=== PATIENT | male | born 1990 | race Caucasian/White ===

== ENCOUNTER 2023-04-13 20:17 | Inpatient (IN) | payer MEDICAID ==
[~2023-04-13] VITALS: Ht 182.9 cm; Wt 148.8 kg
[2023-04-14] MEDS ORDERED: vancomycin/NS 1 GM ADD-VANTAGE 250 ML IV ONE ×2 (00:15→02:00)
[2023-04-14] MEDS ORDERED: piperacillin/tazo 3.375gm/50ml 50 ML IV ONE (00:15)
[2023-04-14 01:40] LABS: BASOPHILS # (AUTO) 0.1 X10'3 (0-0.2); BASOPHILS % (AUTO) 0.6 % (0-1); EOSINOPHILS # (AUTO) 0.3 X10'3 (0-0.9); EOSINOPHILS % (AUTO) 1.6 % (0-6); HEMATOCRIT 34.5 % (42.0-52.0); HEMOGLOBIN 11.3 g/dl (14.0-17.9); LYMPHOCYTES # (AUTO) 1.4 X10'3 (1.1-4.8); LYMPHOCYTES % (AUTO) 8.4 % (21-51); MEAN CORPUSCULAR HEMOGLOBIN 26.6 PG (27.0-31.0); MEAN CORPUSCULAR HGB CONC 32.8 g/dL (33.0-36.5); MEAN CORPUSCULAR VOLUME 81.2 FL (78-98); MONOCYTES % (AUTO) 6.3 % (2-12); NEUTROPHILS # (AUTO) 13.5 X10'3 (1.8-7.7); NEUTROPHILS % (AUTO) 83.1 % (42-75); PLATELET COUNT 488 X10'3 (140-440); RED BLOOD COUNT 4.25 X10'6 (4.70-6.10); RED CELL DISTRIBUTION WIDTH 13.8 % (11.5-14.5); WHITE BLOOD COUNT 16.2 X10'3 (4.5-11.0)
[2023-04-14 01:55] LABS: ALANINE AMINOTRANSFERASE 21 U/L (12-78); ALBUMIN 2.9 G/DL (3.4-5.0); ALBUMIN/GLOBULIN RATIO 0.6 (1.1-1.5); ALKALINE PHOSPHATASE 87 IU/L (46-116); ANION GAP 4 (8-16); ASPARTATE AMINO TRANSFERASE 12 U/L (10-37); BILIRUBIN,TOTAL 0.2 MG/DL (0.1-1.0); BLOOD UREA NITROGEN 13 MG/DL (7-18); BUN/CREATININE RATIO 14.6 (10.0-20.0); CALCIUM 9.2 MG/DL (8.5-10.1); CHLORIDE 102 MMOL/L (99-107); CREATININE 0.89 MG/DL (0.60-1.10); GLUCOSE 108 MG/DL (70-104); MAGNESIUM 2.1 MG/DL (1.5-2.4); POTASSIUM 4.3 MMOL/L (3.5-5.1); SODIUM 134 MMOL/L (135-145); TOTAL CARBON DIOXIDE 27.8 MMOL/L (24-32); eCRCL 132 ML/MIN; eGFR > 90 ML/MIN
[2023-04-14] MEDS ORDERED: magnesium 2GM in 50ml NS 50 ML IV PRN (02:30)
[2023-04-14] MEDS ORDERED: mag hydrox/Alum hydrox/simeth 30ml oral suspension PO PRN (02:30)
[2023-04-14] MEDS ORDERED: ondansetron/PF 4mg/2ml inj IV PRN (02:30)
[2023-04-14] MEDS ORDERED: magnesium 4gm in 100ml NS 100 ML IV PRN (02:30)
[2023-04-14] MEDS ORDERED: magnesium Cl slow-release 64mg tablet PO PRN (02:30)
[2023-04-14] MEDS ORDERED: acetaminophen 325mg tablet PO PRN (02:30)
[2023-04-14] MEDS ORDERED: magnesium hydroxide 30ml (MOM) UD suspension PO PRN (02:30)
[2023-04-14] MEDS ORDERED: potassium Cl 40MEQ/1/2NS 520ml 520 ML IV PRN (02:30)
[2023-04-14] MEDS ORDERED: morphine 2 MG/ML inj. syringe IV PRN (02:30)
[2023-04-14] MEDS ORDERED: potassium Cl 20 mEq SR tablet PO PRN ×2 (02:30)
[2023-04-14] MEDS ORDERED: hydrALAZINE 20mg/ml inj. IV PRN (05:50)
--- NOTE | 2023-04-14 06:57 | NUR ---
floating checking to see if there is any oral meds or orders to help rn
--- NOTE | 2023-04-14 07:14 | NUR ---
PT SHOWED HR OF 134 WITH SAT MONITOR. RN ORD EKG PER PROTOCOL AND WILL APPLY TELE. MD WILL BE NOTIFIED.
[2023-04-14] MEDS ORDERED: lisinopril 10 MG tablet PO SCH (08:00)
[2023-04-14] MEDS: K and/or MAG REPLACEMENT MC SCH ×2 (08:00→20:00)
[2023-04-14] MEDS ORDERED: vancomycin/NS 1 GM ADD-VANTAGE 250 ML IV SCH ×2 (08:00→11:00)
[2023-04-14] MEDS: docusate sod 100mg capsule PO SCH ×2 (08:00→20:00)
[2023-04-14] MEDS ORDERED: metoprolol succinate 25mg (24-HOUR) SR. Tablet PO SCH (08:00)
--- NOTE | 2023-04-14 08:01 | NUR ---
RN PAGED DR YORK TO NOTIFY HIM OF PT HR AND EKG RESULT.
--- NOTE | 2023-04-14 08:02 | NUR ---
EKG RESULT S-TACHYCARDIA. PT HAS NO C/O CP AND STATES THAT HE HAS A HX OF HIGH HR.
[2023-04-14] MEDS: HYDROcodone/acetaminophen 5mg/325mg tablet PO PRN ×3 (08:46→22:19)
[2023-04-14] MEDS: piperacillin/tazo 4.5gm/100ml 100 ML IV SCH ×3 (08:47→22:19)
[2023-04-14] MEDS: enoxaparin 40mg/0.4ml syringe SUBCUT SCH (08:47)
--- NOTE | 2023-04-14 08:48 | NUR ---
RN WILL ATTEMPT NEW IV D/T VANC AND ZOSYN ARE NOT COMPATIBLE.
[2023-04-14 10:37] LABS: BILIRUBIN,URINE NEGATIVE (Neg); CLARITY,URINE CLEAR (Clear); COLOR,URINE YELLOW (Yellow); GLUCOSE, URINE NEGATIVE (Neg); KETONES,URINE NEGATIVE (Neg); LEUKOCYTE ESTERASE ,URINE NEGATIVE (Neg); NITRITES, URINE NEGATIVE (Neg); OCCULT BLOOD,URINE NEGATIVE (Neg); PH,URINE 5.5 (4.8-8.0); PROTEIN,URINE NEGATIVE (Neg); UROBILINOGEN,URINE 0.2 E.U/dL (0.2-1.0)
[2023-04-14 10:45] LABS: UA COLLECTION TYPE CLN CATCH MIDSTREAM; URINE AMPHETAMINE SCREEN NEGATIVE (Neg); URINE BARBITUATE SCREEN NEGATIVE (Neg); URINE BENZODIAZEPINES SCREEN NEGATIVE (Neg); URINE CANNABINOID SCREEN NEGATIVE (Neg); URINE COCAINE SCREEN NEGATIVE (Neg); URINE METHADONE SCREEN NEGATIVE (Neg); URINE OPIATE SCREEN NEGATIVE (Neg); URINE PHENCYCLIDINE SCREEN NEGATIVE (Neg)
[2023-04-14 10:48] LABS: CHOL/HDL RATIO 3.2 (0.00-4.99); CHOLESTEROL 94 MG/DL (0-200); ETHANOL < 10 MG/DL (<10); HDL CHOLESTEROL 29 MG/DL (35-60); LDL CHOLESTEROL 54 MG/DL (50-100); THYROID STIMULATING HORMONE 1.28 ulU/ml (0.34-4.50); TRIGLYCERIDES 41 MG/DL (20-135)
[2023-04-14 10:56] LABS: HEMOGLOBIN A1C 5.9 % (4.5-6.2)
[2023-04-14] MEDS: vancomycin/NS 1 GM ADD-VANTAGE 250 ML IV SCH ×2 (12:53→20:29)
[2023-04-14] MEDS ORDERED: LISI10TA27 PO (13:42)
[2023-04-14] MEDS ORDERED: METO-411 PO (13:43)
[2023-04-14] MEDS ORDERED: CEPH-585 PO (13:45)
[2023-04-14] MEDS ORDERED: SULF1TAB45 PO (13:46)
[2023-04-14] MEDS ORDERED: IBUP-1985 PO (13:47)
[2023-04-14] MEDS ORDERED: ACET325T55 PO (13:49)
--- NOTE | 2023-04-14 17:23 | NUR ---
RN ATTEMPTED TO CALL REPORT AND SPOKE WITH JATINDER WHO STATED THEY HAVE TO ASSIGN A NURSE AND THEY WILL CALL BACK ONCE THIS IS DONE. THIS RN NOTIFIED WATER ENGINEER DEBBIE.
--- NOTE | 2023-04-14 18:01 | NUR ---
pt just arrived to floor
[2023-04-14 18:08] VITALS: BP 156/77; PULSE 112; RESP 20; TEMP 99.6; O2SAT 96
--- NOTE | 2023-04-14 18:10 | NUR ---
gave report to october,
[2023-04-14] MEDS: lisinopril 10 MG tablet PO SCH (20:28)
[2023-04-14 22:00] VITALS: BP 149/69; PULSE 113; RESP 17; TEMP 98.9; O2SAT 99
[2023-04-15] MEDS ORDERED: VANCOMYCIN LEVEL IV ONE (02:30)
[2023-04-15] MEDS: HYDROcodone/acetaminophen 5mg/325mg tablet PO PRN (04:26)
[2023-04-15] MEDS: vancomycin/NS 1 GM ADD-VANTAGE 250 ML IV SCH (04:27)
[2023-04-15 06:00] VITALS: BP 138/58; PULSE 115; RESP 18; TEMP 98.8; O2SAT 95
[2023-04-15 06:11] LABS: BASOPHILS # (AUTO) 0.1 X10'3 (0-0.2); BASOPHILS % (AUTO) 0.6 % (0-1); EOSINOPHILS # (AUTO) 0.1 X10'3 (0-0.9); EOSINOPHILS % (AUTO) 0.8 % (0-6); HEMATOCRIT 34.1 % (42.0-52.0); HEMOGLOBIN 11.1 g/dl (14.0-17.9); LYMPHOCYTES # (AUTO) 1.8 X10'3 (1.1-4.8); LYMPHOCYTES % (AUTO) 10.9 % (21-51); MEAN CORPUSCULAR HEMOGLOBIN 26.3 PG (27.0-31.0); MEAN CORPUSCULAR HGB CONC 32.5 g/dL (33.0-36.5); MEAN CORPUSCULAR VOLUME 80.9 FL (78-98); MONOCYTES # (AUTO) 1.1 X10'3 (0-0.9); MONOCYTES % (AUTO) 6.8 % (2-12); NEUTROPHILS # (AUTO) 13.2 X10'3 (1.8-7.7); NEUTROPHILS % (AUTO) 80.9 % (42-75); PLATELET COUNT 491 X10'3 (140-440); RED BLOOD COUNT 4.22 X10'6 (4.70-6.10); RED CELL DISTRIBUTION WIDTH 13.6 % (11.5-14.5); WHITE BLOOD COUNT 16.3 X10'3 (4.5-11.0)
[2023-04-15] MEDS: piperacillin/tazo 4.5gm/100ml 100 ML IV SCH ×3 (06:14→21:56)
--- NOTE | 2023-04-15 06:15 | NUR ---
Patient in room ORTHO 4010. I have received report from Linda RN and had the opportunity to ask questions and assume patient care.
[2023-04-15 06:57] LABS: % IRON SATURATION 7 % (11-46); IRON 16 UG/DL (53-167); TOTAL IRON BINDING CAPACITY 214 UG/DL (259-388)
[2023-04-15 07:11] LABS: ALANINE AMINOTRANSFERASE 18 U/L (12-78); ALBUMIN 2.5 G/DL (3.4-5.0); ALBUMIN/GLOBULIN RATIO 0.5 (1.1-1.5); ALKALINE PHOSPHATASE 71 IU/L (46-116); ANION GAP 10 (8-16); ASPARTATE AMINO TRANSFERASE 14 U/L (10-37); BILIRUBIN,TOTAL 0.4 MG/DL (0.1-1.0); BLOOD UREA NITROGEN 12 MG/DL (7-18); BUN/CREATININE RATIO 15.4 (10.0-20.0); CALCIUM 8.9 MG/DL (8.5-10.1); CHLORIDE 100 MMOL/L (99-107); CREATININE 0.78 MG/DL (0.60-1.10); FERRITIN 425 NG/ML (26-388); GLUCOSE 120 MG/DL (70-104); SODIUM 134 MMOL/L (135-145); TOTAL CARBON DIOXIDE 24.3 MMOL/L (24-32); TOTAL PROTEIN 7.3 G/DL (6.4-8.2); eCRCL 151 ML/MIN; eGFR > 90 ML/MIN
[2023-04-15 08:00] VITALS: RESP 18; O2SAT 95
[2023-04-15] MEDS: K and/or MAG REPLACEMENT MC SCH ×2 (08:00→20:00)
[2023-04-15] MEDS: docusate sod 100mg capsule PO SCH ×2 (08:00→20:00)
[2023-04-15] MEDS: enoxaparin 40mg/0.4ml syringe SUBCUT SCH (08:09)
[2023-04-15] MEDS: metoprolol succinate 25mg (24-HOUR) SR. Tablet PO SCH (08:09)
[2023-04-15 10:00] VITALS: BP 146/69; PULSE 112; RESP 18; TEMP 99.3; O2SAT 95
[2023-04-15] MEDS ORDERED: FLU VACC QS2023-24(6MOS UP)/PF 60 MCG/0.5 ML SYRINGE IM ONE (10:00)
[2023-04-15] MEDS: VANCOMYCIN 1,500MG in NS 300ml IVPB IV SCH ×2 (11:02→19:28)
[2023-04-15] MEDS ORDERED: iohexol 300mg/ml 100ml inj. ONE (13:40)
[2023-04-15] MEDS ORDERED: iohexol 350MG/ML 100ml bottle IV ONE (14:11)
[2023-04-15 18:00] VITALS: BP 145/67; PULSE 102; RESP 14; TEMP 99; O2SAT 95
--- NOTE | 2023-04-15 18:00 | NUR ---
I have reviewed and agree with interventions, assessments, and documentation by Taryn Can LVN.
--- NOTE | 2023-04-15 18:07 | NUR ---
Problems reprioritized. Patient report given, questions answered & plan of care reviewed with Linda BONNER.
[2023-04-15] MEDS: lisinopril 10 MG tablet PO SCH (19:28)
[2023-04-15 22:00] VITALS: BP 165/65; PULSE 117; RESP 16; TEMP 97.6; O2SAT 96
[2023-04-16] VITALS (16 sets, daily range): BP systolic 118–147; BP diastolic 71–88; PULSE 88–120; RESP 14–18; TEMP 96.8–99.5; O2SAT 93–98
[2023-04-16] MEDS: VANCOMYCIN 1,500MG in NS 300ml IVPB IV SCH ×3 (03:27→19:06)
[2023-04-16] MEDS: piperacillin/tazo 4.5gm/100ml 100 ML IV SCH ×3 (05:59→22:12)
[2023-04-16 06:21] LABS: BASOPHILS # (AUTO) 0.1 X10'3 (0-0.2); BASOPHILS % (AUTO) 0.4 % (0-1); EOSINOPHILS # (AUTO) 0.1 X10'3 (0-0.9); EOSINOPHILS % (AUTO) 0.8 % (0-6); HEMATOCRIT 35.5 % (42.0-52.0); HEMOGLOBIN 11.6 g/dl (14.0-17.9); LYMPHOCYTES # (AUTO) 1.8 X10'3 (1.1-4.8); LYMPHOCYTES % (AUTO) 11.6 % (21-51); MEAN CORPUSCULAR HEMOGLOBIN 26.5 PG (27.0-31.0); MEAN CORPUSCULAR HGB CONC 32.8 g/dL (33.0-36.5); MEAN CORPUSCULAR VOLUME 80.7 FL (78-98); MONOCYTES # (AUTO) 1.1 X10'3 (0-0.9); MONOCYTES % (AUTO) 7.1 % (2-12); NEUTROPHILS # (AUTO) 12.4 X10'3 (1.8-7.7); NEUTROPHILS % (AUTO) 80.1 % (42-75); PLATELET COUNT 539 X10'3 (140-440); RED CELL DISTRIBUTION WIDTH 13.7 % (11.5-14.5); WHITE BLOOD COUNT 15.5 X10'3 (4.5-11.0)
[2023-04-16 06:40] LABS: ALANINE AMINOTRANSFERASE 24 U/L (12-78); ALBUMIN 2.6 G/DL (3.4-5.0); ALBUMIN/GLOBULIN RATIO 0.5 (1.1-1.5); ALKALINE PHOSPHATASE 70 IU/L (46-116); ANION GAP 6 (8-16); ASPARTATE AMINO TRANSFERASE 12 U/L (10-37); BILIRUBIN,TOTAL 0.5 MG/DL (0.1-1.0); BLOOD UREA NITROGEN 9 MG/DL (7-18); BUN/CREATININE RATIO 11.1 (10.0-20.0); CALCIUM 9.5 MG/DL (8.5-10.1); CHLORIDE 101 MMOL/L (99-107); CREATININE 0.81 MG/DL (0.60-1.10); GLUCOSE 123 MG/DL (70-104); POTASSIUM 4.1 MMOL/L (3.5-5.1); SODIUM 137 MMOL/L (135-145); TOTAL CARBON DIOXIDE 29.8 MMOL/L (24-32); TOTAL PROTEIN 7.6 G/DL (6.4-8.2); eCRCL 145 ML/MIN; eGFR > 90 ML/MIN
--- NOTE | 2023-04-16 06:49 | NUR ---
Patient in room ORTHO 4010. I have received report from CARL RN and had the opportunity to ask questions and assume patient care.
[2023-04-16] MEDS: docusate sod 100mg capsule PO SCH ×2 (08:00→19:53)
[2023-04-16] MEDS: K and/or MAG REPLACEMENT MC SCH ×2 (08:00→21:55)
[2023-04-16] MEDS: metoprolol succinate 25mg (24-HOUR) SR. Tablet PO SCH (08:04)
[2023-04-16] MEDS ORDERED: VANCOMYCIN LEVEL IV ONE (10:30)
--- NOTE | 2023-04-16 11:48 | NUR ---
vanco trough blood draw was hemolyzed. vanco 1500mg already started after blood draw. i notified the pharmacist. pt. vanco trough yesterday 7.8
[2023-04-16] MEDS ORDERED: hydrALAZINE 20mg/ml inj. IV PRN ×2 (14:35→15:30)
[2023-04-16] MEDS ORDERED: morphine 2 MG/ML inj. syringe IV PRN ×2 (14:35→15:30)
[2023-04-16] MEDS ORDERED: ondansetron/PF 4mg/2ml inj IV PRN ×2 (14:35→15:30)
[2023-04-16] MEDS ORDERED: labetalol 20mg/4ml (5mg/ml) syringe IV PRN ×2 (14:35→15:30)
[2023-04-16] MEDS ORDERED: ringers solution, lacted 1,000 ML IV SCH ×2 (14:35→15:30)
[2023-04-16] MEDS ORDERED: morphine 4 MG/ML inj SYRINge IV PRN ×2 (14:35→15:30)
[2023-04-16] MEDS ORDERED: fentaNYL/PF 50MCG/1 ML 2ML syringe IV PRN ×2 (14:35)
[2023-04-16] MEDS ORDERED: proCHLORperazine 10 MG/2 ml inj IV PRN (15:30)
[2023-04-16] MEDS ORDERED: acetaminophen 1,000mg/100ml IV 100 ML IV PRN (15:30)
[2023-04-16] MEDS ORDERED: meperidine/PF 25mg/ml syringe IV PRN ×3 (15:30)
[2023-04-16] MEDS ORDERED: ketorolac trometh. 30mg/ml inj. IV ONE (15:30)
[2023-04-16] MEDS ORDERED: sevoflurane 250ml liquid IH ONE (16:06)
[2023-04-16] MEDS ORDERED: midazolam 1 mg/ML 2ml injection ONE (16:11)
[2023-04-16] MEDS ORDERED: fentaNYL /PF 50mcg/ml 5ml ampule ONE (16:12)
[2023-04-16] MEDS ORDERED: ceFAZolin 1000mg inj ONE ×3 (16:19)
[2023-04-16] MEDS ORDERED: LIDOcaine 2% (20mg/ml) 5ml vial ONE (16:25)
[2023-04-16] MEDS ORDERED: dexamethasone sod phosphate 4mg/ml inj. ONE (16:25)
[2023-04-16] MEDS ORDERED: propofol inj 20 ML IV ONE ×2 (16:26)
[2023-04-16] MEDS ORDERED: ondansetron/PF 4mg/2ml inj ONE (16:26)
--- NOTE | 2023-04-16 17:03 | NUR ---
Received from OR via BED IN STABLE CONDITION , accompanied by Anesthesiologist and PLASTIC INJECTION MOLD MAKER report given by PLASTIC INJECTION MOLD MAKER AND Anesthesiolgist. Addendum: 04/16/23 at 1718 by Catalina Ghotra RN Amended: Links added.
[2023-04-16] MEDS: HYDROcodone/acetaminophen 5mg/325mg tablet PO PRN ×2 (17:35→22:12)
--- NOTE | 2023-04-16 17:53 | NUR ---
PATIENT DISCHARGED FROM PACU IN STABLE CONDITION AFTER REPORT GIVEN TO RN TAKING OVER PATIENTS CARE. PATIENT TRANSFERRED TO ROOM 4010B VIA BED WITH RNX2. Addendum: 04/16/23 at 1756 by Catalina Ghotra RN Amended: Links added.
--- NOTE | 2023-04-16 18:43 | NUR ---
Problems reprioritized. Patient report given TO TRACEY BONNER, questions answered & plan of care reviewed with .
--- NOTE | 2023-04-16 19:18 | NUR ---
Student Medication Administration: For this medication-pass time frame, all medication were reviewed, dispensed, administered and documented per hospital policy by Ryan Arias [facility].
[2023-04-16] MEDS: lisinopril 10 MG tablet PO SCH (22:12)
[2023-04-17 01:14] VITALS: BP 143/73; PULSE 76; RESP 17; TEMP 97.8; O2SAT 96
[2023-04-17] MEDS: VANCOMYCIN 1,500MG in NS 300ml IVPB IV SCH (04:21)
[2023-04-17 04:28] LABS: BASOPHILS % (AUTO) 0.3 % (0-1); EOSINOPHILS % (AUTO) 0.1 % (0-6); HEMATOCRIT 36.1 % (42.0-52.0); HEMOGLOBIN 11.8 g/dl (14.0-17.9); LYMPHOCYTES # (AUTO) 0.8 X10'3 (1.1-4.8); LYMPHOCYTES % (AUTO) 4.7 % (21-51); MEAN CORPUSCULAR HEMOGLOBIN 26.2 PG (27.0-31.0); MEAN CORPUSCULAR HGB CONC 32.8 g/dL (33.0-36.5); MEAN CORPUSCULAR VOLUME 79.8 FL (78-98); MEAN PLATELET VOLUME 5.9 FL (7.4-10.4); MONOCYTES # (AUTO) 0.5 X10'3 (0-0.9); MONOCYTES % (AUTO) 2.9 % (2-12); NEUTROPHILS # (AUTO) 15.4 X10'3 (1.8-7.7); PLATELET COUNT 577 X10'3 (140-440); RED BLOOD COUNT 4.53 X10'6 (4.70-6.10); RED CELL DISTRIBUTION WIDTH 13.6 % (11.5-14.5); WHITE BLOOD COUNT 16.7 X10'3 (4.5-11.0)
[2023-04-17 04:44] LABS: ALANINE AMINOTRANSFERASE 22 U/L (12-78); ALBUMIN 2.5 G/DL (3.4-5.0); ALBUMIN/GLOBULIN RATIO 0.5 (1.1-1.5); ALKALINE PHOSPHATASE 69 IU/L (46-116); ANION GAP 7 (8-16); ASPARTATE AMINO TRANSFERASE 13 U/L (10-37); BILIRUBIN,TOTAL 0.3 MG/DL (0.1-1.0); BLOOD UREA NITROGEN 17 MG/DL (7-18); BUN/CREATININE RATIO 20.5 (10.0-20.0); CALCIUM 9.4 MG/DL (8.5-10.1); CHLORIDE 101 MMOL/L (99-107); CREATININE 0.83 MG/DL (0.60-1.10); GLUCOSE 141 MG/DL (70-104); SODIUM 136 MMOL/L (135-145); TOTAL CARBON DIOXIDE 28.2 MMOL/L (24-32); TOTAL PROTEIN 7.9 G/DL (6.4-8.2); VANCOMYCIN,TROUGH 14.9 ug/mL (10.0-20.0); eCRCL 142 ML/MIN; eGFR > 90 ML/MIN
--- NOTE | 2023-04-17 05:05 | NUR ---
vanco trough noted. vanco dose hanging. new iv started
--- NOTE | 2023-04-17 06:20 | NUR ---
Patient in room ORTHO 4010. I have received report from KAILEY Crouch and had the opportunity to ask questions and assume patient care.
[2023-04-17] MEDS: docusate sod 100mg capsule PO SCH ×2 (07:47→20:00)
[2023-04-17] MEDS: metoprolol succinate 25mg (24-HOUR) SR. Tablet PO SCH (07:48)
[2023-04-17] MEDS: enoxaparin 40mg/0.4ml syringe SUBCUT SCH (07:49)
[2023-04-17] MEDS: piperacillin/tazo 4.5gm/100ml 100 ML IV SCH ×3 (07:54→22:27)
[2023-04-17 08:00] VITALS: RESP 16; O2SAT 95
[2023-04-17] MEDS: K and/or MAG REPLACEMENT MC SCH ×2 (08:00→20:00)
[2023-04-17 08:15] VITALS: RESP 20; O2SAT 98
[2023-04-17] MEDS: vancomycin 1,750 MG in NS 350ml IV soln IV SCH ×2 (13:03→19:32)
[2023-04-17] MEDS: HYDROcodone/acetaminophen 5mg/325mg tablet PO PRN (13:41)
--- NOTE | 2023-04-17 15:00 | NUR ---
CONCRETE FLOATER documentation: I have reviewed and agree with all interventions, assessments performed and documented by eT Jordan LVN.
[2023-04-17 18:00] VITALS: BP 108/51; PULSE 99; RESP 18; TEMP 97.3; O2SAT 99
--- NOTE | 2023-04-17 18:35 | NUR ---
Patient in room ORTHO 4010. I have received report from ELVIA BONNER and had the opportunity to ask questions and assume patient care.
[2023-04-17 20:00] VITALS: RESP 18; O2SAT 96
[2023-04-17] MEDS: lisinopril 10 MG tablet PO SCH (21:19)
[2023-04-17 22:00] VITALS: BP 123/59; PULSE 68; RESP 18; TEMP 97.5; O2SAT 94
[2023-04-18] MEDS: vancomycin 1,750 MG in NS 350ml IV soln IV SCH ×2 (03:13→11:15)
[2023-04-18] MEDS: piperacillin/tazo 4.5gm/100ml 100 ML IV SCH (05:50)
[2023-04-18 06:00] VITALS: BP 129/75; PULSE 107; RESP 16; TEMP 97.3; O2SAT 97
--- NOTE | 2023-04-18 06:30 | NUR ---
Problems reprioritized. Patient report given, questions answered & plan of care reviewed with JERRICA ZARCO.
--- NOTE | 2023-04-18 07:06 | NUR ---
Patient in room ORTHO 4010. I have received report from Juanis Olivarez RN and had the opportunity to ask questions and assume patient care.
[2023-04-18 07:42] LABS: BASOPHILS # (AUTO) 0.1 X10'3 (0-0.2); BASOPHILS % (AUTO) 0.7 % (0-1); EOSINOPHILS # (AUTO) 0.2 X10'3 (0-0.9); EOSINOPHILS % (AUTO) 1.3 % (0-6); HEMATOCRIT 34.7 % (42.0-52.0); HEMOGLOBIN 11.3 g/dl (14.0-17.9); LYMPHOCYTES % (AUTO) 17.5 % (21-51); MEAN CORPUSCULAR HEMOGLOBIN 26.3 PG (27.0-31.0); MEAN CORPUSCULAR HGB CONC 32.5 g/dL (33.0-36.5); MEAN CORPUSCULAR VOLUME 80.8 FL (78-98); MEAN PLATELET VOLUME 6.3 FL (7.4-10.4); MONOCYTES # (AUTO) 0.8 X10'3 (0-0.9); NEUTROPHILS # (AUTO) 8.6 X10'3 (1.8-7.7); NEUTROPHILS % (AUTO) 73.5 % (42-75); PLATELET COUNT 587 X10'3 (140-440); RED BLOOD COUNT 4.29 X10'6 (4.70-6.10); RED CELL DISTRIBUTION WIDTH 13.7 % (11.5-14.5); WHITE BLOOD COUNT 11.6 X10'3 (4.5-11.0)
[2023-04-18] MEDS: enoxaparin 40mg/0.4ml syringe SUBCUT SCH (07:54)
[2023-04-18] MEDS: metoprolol succinate 25mg (24-HOUR) SR. Tablet PO SCH (07:54)
[2023-04-18] MEDS: docusate sod 100mg capsule PO SCH ×2 (07:55→20:00)
[2023-04-18] MEDS: K and/or MAG REPLACEMENT MC SCH ×2 (07:57→19:28)
[2023-04-18 08:00] VITALS: RESP 16; O2SAT 95
[2023-04-18 08:23] LABS: ALANINE AMINOTRANSFERASE 27 U/L (12-78); ALBUMIN 2.5 G/DL (3.4-5.0); ALBUMIN/GLOBULIN RATIO 0.6 (1.1-1.5); ALKALINE PHOSPHATASE 59 IU/L (46-116); ANION GAP 5 (8-16); ASPARTATE AMINO TRANSFERASE 10 U/L (10-37); BILIRUBIN,TOTAL 0.3 MG/DL (0.1-1.0); BLOOD UREA NITROGEN 19 MG/DL (7-18); BUN/CREATININE RATIO 18.6 (10.0-20.0); CALCIUM 8.8 MG/DL (8.5-10.1); CHLORIDE 105 MMOL/L (99-107); CREATININE 1.02 MG/DL (0.60-1.10); GLUCOSE 96 MG/DL (70-104); POTASSIUM 4.1 MMOL/L (3.5-5.1); SODIUM 141 MMOL/L (135-145); TOTAL CARBON DIOXIDE 30.6 MMOL/L (24-32); eCRCL 115 ML/MIN; eGFR 85 ML/MIN
[2023-04-18 10:00] VITALS: BP 133/58; PULSE 101; RESP 16; TEMP 97.9; O2SAT 95
[2023-04-18] MEDS: HYDROcodone/acetaminophen 5mg/325mg tablet PO PRN ×2 (10:17→22:14)
[2023-04-18] MEDS ORDERED: VANCOMYCIN LEVEL IV ONE (10:30)
--- NOTE | 2023-04-18 14:20 | NUR ---
WOUND VAC EDUCATION PROVIDED BY WOUND CARE 1. Patient instructed to call the Wound Center or their Home Health Agency immediately if: * They notice a change in the color or amount of the fluid in the canister. * Their wound looks more red than usual or has a foul smell. * The skin around their wound looks reddened or irritated. * The dressing feels loose or appears to be loose. * They experience any increase or changes in their pain. * The alarm will not turn off. 2. Patient instructed that they should not be disconnected from suction for more than 2 hours at a time. * If they are not able to get the suction back on, they need to remove the dressing and take all of the foam out of the wound. * Then moisten sterile gauze with normal saline and place on/in the wound. * Change the dressing once a day until arrangements have been made to replace the wound vac dressing. 3. Patient instructed to turn the wound vac machine OFF and call 911 or go to the ED immediately if their canister fills rapidly with blood. 4. If any of these occur while in the hospital tell a nurse immediately. Addendum: 04/18/23 at 1420 by Shweta Moreau LVN Amended: Links added.
--- NOTE | 2023-04-18 14:46 | NUR ---
JEWEL BEARING TURNER documentation: I have reviewed and agree with all interventions, assessments performed and documented by Bita Caldera LVN.
[2023-04-18 18:00] VITALS: BP 123/65; PULSE 94; RESP 13; TEMP 97.7; O2SAT 92
[2023-04-18] MEDS: ciprofloxacin lact 400MG/200ML 200 ML IV SCH (20:38)
[2023-04-18] MEDS: lisinopril 10 MG tablet PO SCH (20:45)
[2023-04-18 22:00] VITALS: BP 125/74; PULSE 96; RESP 16; TEMP 97.7; O2SAT 96
--- NOTE | 2023-04-19 05:43 | NUR ---
I agree with DIP DYER physical assessment.
[2023-04-19 06:00] VITALS: BP 145/78; PULSE 89; RESP 16; TEMP 96.9; O2SAT 96
[2023-04-19 06:09] LABS: HEMOGLOBIN 11.7 g/dl (14.0-17.9)
[2023-04-19 06:12] LABS: BASOPHILS # (AUTO) 0.1 X10'3 (0-0.2); EOSINOPHILS # (AUTO) 0.2 X10'3 (0-0.9); EOSINOPHILS % (AUTO) 1.8 % (0-6); HEMATOCRIT 35.2 % (42.0-52.0); LYMPHOCYTES # (AUTO) 1.9 X10'3 (1.1-4.8); LYMPHOCYTES % (AUTO) 15.5 % (21-51); MEAN CORPUSCULAR HEMOGLOBIN 26.8 PG (27.0-31.0); MEAN CORPUSCULAR HGB CONC 33.3 g/dL (33.0-36.5); MEAN CORPUSCULAR VOLUME 80.4 FL (78-98); MEAN PLATELET VOLUME 6.2 FL (7.4-10.4); MONOCYTES # (AUTO) 0.8 X10'3 (0-0.9); MONOCYTES % (AUTO) 6.5 % (2-12); NEUTROPHILS # (AUTO) 9.4 X10'3 (1.8-7.7); NEUTROPHILS % (AUTO) 75.2 % (42-75); PLATELET COUNT 576 X10'3 (140-440); RED BLOOD COUNT 4.37 X10'6 (4.70-6.10); RED CELL DISTRIBUTION WIDTH 13.6 % (11.5-14.5); WHITE BLOOD COUNT 12.5 X10'3 (4.5-11.0)
[2023-04-19 06:21] LABS: ALANINE AMINOTRANSFERASE 27 U/L (12-78); ALBUMIN 2.6 G/DL (3.4-5.0); ALBUMIN/GLOBULIN RATIO 0.6 (1.1-1.5); ALKALINE PHOSPHATASE 60 IU/L (46-116); ANION GAP 7 (8-16); ASPARTATE AMINO TRANSFERASE 8 U/L (10-37); BILIRUBIN,TOTAL 0.3 MG/DL (0.1-1.0); BLOOD UREA NITROGEN 17 MG/DL (7-18); BUN/CREATININE RATIO 17.9 (10.0-20.0); CALCIUM 9.2 MG/DL (8.5-10.1); CHLORIDE 103 MMOL/L (99-107); CREATININE 0.95 MG/DL (0.60-1.10); GLUCOSE 103 MG/DL (70-104); POTASSIUM 4.2 MMOL/L (3.5-5.1); SODIUM 140 MMOL/L (135-145); TOTAL CARBON DIOXIDE 30.1 MMOL/L (24-32); TOTAL PROTEIN 7.2 G/DL (6.4-8.2); eCRCL 124 ML/MIN; eGFR > 90 ML/MIN
--- NOTE | 2023-04-19 06:25 | NUR ---
Problems reprioritized. Patient report given, questions answered & plan of care reviewed with Megan. Jasmyn BONNER.
[2023-04-19] MEDS: K and/or MAG REPLACEMENT MC SCH ×2 (07:48→18:29)
[2023-04-19] MEDS: docusate sod 100mg capsule PO SCH ×2 (08:00→19:33)
[2023-04-19] MEDS: ciprofloxacin lact 400MG/200ML 200 ML IV SCH ×2 (08:47→19:26)
[2023-04-19] MEDS: metoprolol succinate 25mg (24-HOUR) SR. Tablet PO SCH (08:47)
[2023-04-19] MEDS: enoxaparin 40mg/0.4ml syringe SUBCUT SCH (08:48)
--- NOTE | 2023-04-19 09:49 | NUR ---
Initial: Pt admit for left groin cellulitis/abscess. Currently POD #3 s/p I&D of groin abscess. Per WOC note pt with a wound VAC in place. Pt on a regular diet and eating well, documented with average 90% PO intake of meals since admit meeting 100% estimated energy needs and 93% estimated protein needs. LBM 10/12 per EMR. Pt with routine bowel care available however not given throughout LOS d/t not being needed per documentation. No nutrition intervention implemented at this time. Will continue to follow and make recommendations as appropriate. Recommendations: 1) Continue regular diet 2) Monitor need for ONS/additional protein 3) Bowel care per rx 4) Scaled weight this admit; subsequent weekly scaled weights Addendum: 04/19/23 at [address] Amended: Links added.
[2023-04-19 10:00] VITALS: BP 145/88; PULSE 106; RESP 18; TEMP 97.1; O2SAT 94
[2023-04-19 18:00] VITALS: BP 122/72; PULSE 87; RESP 18; TEMP 97.6; O2SAT 95
--- NOTE | 2023-04-19 18:31 | NUR ---
Report given to Montrell ZARCO, pt resting comfortably with family at bedside.
[2023-04-19] MEDS: HYDROcodone/acetaminophen 5mg/325mg tablet PO PRN (19:34)
[2023-04-19 20:00] VITALS: RESP 15; O2SAT 96
[2023-04-19] MEDS: lisinopril 10 MG tablet PO SCH (20:14)
[2023-04-19] MEDS: lactobacillus rhamnosus 10,000 MMU CELLS/CAPSULE PO SCH (20:14)
[2023-04-19 22:00] VITALS: BP 121/70; PULSE 86; RESP 16; TEMP 98; O2SAT 96
--- NOTE | 2023-04-20 05:53 | NUR ---
I agree with PUBLIC RELATIONS ACCOUNT SUPERVISOR physical assessment.
[2023-04-20 06:00] VITALS: BP 127/73; PULSE 78; RESP 14; TEMP 97.8; O2SAT 96
--- NOTE | 2023-04-20 06:18 | NUR ---
Problems reprioritized. Patient report given, questions answered & plan of care reviewed with Stefani SHEA.
[2023-04-20] MEDS: K and/or MAG REPLACEMENT MC SCH ×2 (08:00→20:00)
[2023-04-20] MEDS: enoxaparin 40mg/0.4ml syringe SUBCUT SCH (08:11)
[2023-04-20] MEDS: metoprolol succinate 25mg (24-HOUR) SR. Tablet PO SCH (08:11)
[2023-04-20] MEDS: docusate sod 100mg capsule PO SCH ×2 (08:11→20:00)
[2023-04-20] MEDS: lactobacillus rhamnosus 10,000 MMU CELLS/CAPSULE PO SCH ×2 (08:11→20:24)
[2023-04-20] MEDS: ciprofloxacin lact 400MG/200ML 200 ML IV SCH ×2 (09:05→20:52)
[2023-04-20 10:00] VITALS: BP 119/67; PULSE 79; RESP 15; TEMP 97.5; O2SAT 95
[2023-04-20 13:32] VITALS: RESP 18
[2023-04-20 15:00] VITALS: BP 118/65; PULSE 76; RESP 15; TEMP 97.8; O2SAT 95
[2023-04-20 18:00] VITALS: BP 129/64; PULSE 89; RESP 16; TEMP 97.7; O2SAT 96
[2023-04-20] MEDS: lisinopril 10 MG tablet PO SCH (20:24)
--- NOTE | 2023-04-20 21:01 | NUR ---
page to hospitalist: "[id number]--Wound vac is clogged, continously alarming, please advise whether to turn off, replace with wet to dry or other? Dressing is to be changed tomorrow prior to discharge. Dmitry [id number]"
--- NOTE | 2023-04-20 21:02 | NUR ---
Per Dr. Chi, turn off wound vac due to clogging/alarm, dressing to be assessed/changed tomorrow
[2023-04-20 22:00] VITALS: BP 137/70; PULSE 92; RESP 18; TEMP 97.9; O2SAT 96
--- NOTE | 2023-04-21 06:20 | NUR ---
Wound vac takedown with Stefani MEDICAL PRACTICE ADMINISTRATOR r/t clogged line
--- NOTE | 2023-04-21 06:25 | NUR ---
report to Stefani BRAZING MACHINE OPERATOR AUTOMATIC
[2023-04-21 06:28] LABS: BASOPHILS # (AUTO) 0.1 X10'3 (0-0.2); BASOPHILS % (AUTO) 0.9 % (0-1); EOSINOPHILS # (AUTO) 0.3 X10'3 (0-0.9); EOSINOPHILS % (AUTO) 2.2 % (0-6); HEMATOCRIT 37.6 % (42.0-52.0); HEMOGLOBIN 12.2 g/dl (14.0-17.9); LYMPHOCYTES % (AUTO) 14.6 % (21-51); MEAN CORPUSCULAR HEMOGLOBIN 26.1 PG (27.0-31.0); MEAN CORPUSCULAR HGB CONC 32.5 g/dL (33.0-36.5); MEAN CORPUSCULAR VOLUME 80.3 FL (78-98); MEAN PLATELET VOLUME 6.4 FL (7.4-10.4); MONOCYTES # (AUTO) 0.7 X10'3 (0-0.9); MONOCYTES % (AUTO) 4.8 % (2-12); NEUTROPHILS # (AUTO) 10.8 X10'3 (1.8-7.7); NEUTROPHILS % (AUTO) 77.5 % (42-75); PLATELET COUNT 560 X10'3 (140-440); RED BLOOD COUNT 4.68 X10'6 (4.70-6.10); RED CELL DISTRIBUTION WIDTH 13.7 % (11.5-14.5)
[2023-04-21 07:04] VITALS: BP 127/70; PULSE 76; RESP 16; TEMP 97.9; O2SAT 96
[2023-04-21] MEDS: HYDROcodone/acetaminophen 5mg/325mg tablet PO PRN ×2 (07:16→11:42)
[2023-04-21] MEDS: K and/or MAG REPLACEMENT MC SCH (08:00)
[2023-04-21 08:26] LABS: ALANINE AMINOTRANSFERASE 35 U/L (12-78); ALBUMIN 2.9 G/DL (3.4-5.0); ALBUMIN/GLOBULIN RATIO 0.6 (1.1-1.5); ALKALINE PHOSPHATASE 72 IU/L (46-116); ANION GAP 11 (8-16); ASPARTATE AMINO TRANSFERASE 17 U/L (10-37); BILIRUBIN,TOTAL 0.4 MG/DL (0.1-1.0); BLOOD UREA NITROGEN 18 MG/DL (7-18); BUN/CREATININE RATIO 19.4 (10.0-20.0); CALCIUM 9.5 MG/DL (8.5-10.1); CHLORIDE 101 MMOL/L (99-107); CREATININE 0.93 MG/DL (0.60-1.10); GLUCOSE 103 MG/DL (70-104); POTASSIUM 4.2 MMOL/L (3.5-5.1); SODIUM 138 MMOL/L (135-145); TOTAL CARBON DIOXIDE 26.5 MMOL/L (24-32); eCRCL 126 ML/MIN; eGFR > 90 ML/MIN
[2023-04-21] MEDS: docusate sod 100mg capsule PO SCH (09:45)
[2023-04-21] MEDS: lactobacillus rhamnosus 10,000 MMU CELLS/CAPSULE PO SCH (09:45)
[2023-04-21] MEDS: enoxaparin 40mg/0.4ml syringe SUBCUT SCH (09:46)
[2023-04-21] MEDS: metoprolol succinate 25mg (24-HOUR) SR. Tablet PO SCH (09:46)
[2023-04-21] MEDS ORDERED: ciprofloxacin 250mg tablet PO SCH (09:55)
--- NOTE | 2023-04-21 12:00 | NUR ---
I have reviewed and agree with interventions, assessments, and documentation by Stefani Dahl LVN.
[2023-04-21] MEDS ORDERED: CIPR250T26 PO (12:37)
[2023-04-21] MEDS ORDERED: LACT1CAP26 PO (12:37)
[2023-04-21 12:42] VITALS: RESP 16
--- NOTE | 2023-04-21 14:07 | NUR ---
WOUND VAC EDUCATION PROVIDED BY WOUND CARE 1. Patient instructed to call the Wound Center or their Home Health Agency immediately if: * They notice a change in the color or amount of the fluid in the canister. * Their wound looks more red than usual or has a foul smell. * The skin around their wound looks reddened or irritated. * The dressing feels loose or appears to be loose. * They experience any increase or changes in their pain. * The alarm will not turn off. 2. Patient instructed that they should not be disconnected from suction for more than 2 hours at a time. * If they are not able to get the suction back on, they need to remove the dressing and take all of the foam out of the wound. * Then moisten sterile gauze with normal saline and place on/in the wound. * Change the dressing once a day until arrangements have been made to replace the wound vac dressing. 3. Patient instructed to turn the wound vac machine OFF and call 911 or go to the ED immediately if their canister fills rapidly with blood. 4. If any of these occur while in the hospital tell a nurse immediately. Addendum: 04/21/23 at 1408 by Shweta Moreau LVN Amended: Links added.
== END 2023-04-21 15:50 | disposition home or self-care (01) | DRG 710 ==
LOC: ER 20:18 → ED HOLD 04-14 02:35 → ORTHO 4S 04-14 18:06
PROVIDERS: ADMIT Internal Medicine; ATTEND Family Medicine
PROC: 0J9C0ZZ Drainage of Pelvic Region Subcutaneous Tissue and Fascia, Open Approach (ICD-10-PCS; principal; 2023-04-16 16:06)
DX: A41.9 Sepsis, unspecified organism (principal); E87.1 Hypo-osmolality and hyponatremia; D64.9 Anemia, unspecified; E66.01 Morbid (severe) obesity due to excess calories; I10 Essential (primary) hypertension; D72.829 Elevated white blood cell count, unspecified; L03.314 Cellulitis of groin; L02.214 Cutaneous abscess of groin; E03.9 Hypothyroidism, unspecified; F10.10 Alcohol abuse, uncomplicated; R74.01 Elevation of levels of liver transaminase levels; Y90.9 Presence of alcohol in blood, level not specified; Z68.41 Body mass index [BMI] 40.0-44.9, adult
CPT/HCPCS: 36415; 74177; 76857; 80053; 80061; 80202; 80305; 80320; 81003; 82607; 82728; 82948; 83036; 83540; 83550; 83605; 83735; 84145; 84443; 85025; 87040; 87070; 87075; 87077; 87081; 87102; 87186; 90686; 99285; A4618; A4649; A6253; A6258; A6446; A6449; A7000; G0378; J0131; J0690; J0744; J1100; J1650; J1885; J2175; J2250; J2405; J2543; J2704; J3010; J3370; J3490; J7040; J7120; Q9967